=== PATIENT | female | born 1990 | race African-American/Black ===

== ENCOUNTER 2022-04-10 00:14 | Observation (INO) | payer SELFPAY ==
[~2022-04-10] VITALS: Ht 5 cm; Wt 72.6 kg
[2022-04-10] MEDS ORDERED: LACTATED RINGERS 1,000 ML IV ONE ×2 (01:00→01:15)
[2022-04-10] MEDS ORDERED: LACTATED RINGERS 1,000 ML IV SCH (01:00)
[2022-04-10] MEDS ORDERED: ACETAMINOPHEN 500MG TABLET PO PRN (01:00)
[2022-04-10 01:41] LABS: CLARITY URINE CLEAR (CLEAR); COLOR URINE YELLOW (YELLOW); KETONES URINE 1+ (NEGATIVE); LEUKOCYTE ESTERASE URINE TRACE (NEGATIVE); NITRITE URINE NEGATIVE (NEGATIVE); OCCULT BLOOD URINE 1+ (NEGATIVE); PH URINE 6.5 (4.5-8.0); PROTEIN URINE NEGATIVE (NEGATIVE); SPECIFIC GRAVITY URINE 1.015 (1.005-1.030); UROBILINOGEN URINE 0.2 E.U./dL (0.2-1.0)
[2022-04-10] MEDS ORDERED: PREN1TAB78 PO (03:55)
[2022-04-10] MEDS ORDERED: NITR100C PO (03:56)
== END 2022-04-10 04:30 | disposition home or self-care (01) ==
LOC: 8 EST LDRP 00:14
PROVIDERS: ADMIT Obstetrics & Gynecology; ATTEND Obstetrics & Gynecology
DX: O26.892 Other specified pregnancy related conditions, second trimester (principal); R10.9 Unspecified abdominal pain; Z3A.26 26 weeks gestation of pregnancy; Z79.899 Other long term (current) drug therapy
CPT/HCPCS: 59025; 76805; 76817; 81003; 96360; 96361; G0378; J7120; 99281